=== PATIENT | female | born 1935 | race Caucasian/White ===

== ENCOUNTER 2017-04-15 03:51 | Emergency (ER) | payer MEDICARE, BC ==
[2017-04-15 04:36] LABS: Basophils % (A) 0 %; CH 31.9; CHCM 35.9; Eosinophils # (A) 0.2 k/uL (0-0.7); Eosinophils % (A) 4 %; HCT 39.7 % (34.0-46.0); HGB 13.8 gm/dL (11.4-16.0); Luc # (Auto) 0.13; Luc % (Auto) 2; Lymphocytes # (A) 1.6 k/uL (1.0-4.8); Lymphocytes % (A) 29 %; MCH 30.8 pg (25.0-35.0); MCHC 34.7 g/dL (31.0-37.0); Monocytes # (A) 0.4 k/uL (0-1.0); Monocytes % (A) 7 %; Neutrophils # (A) 3.2 k/uL (1.3-7.7); Neutrophils % (A) 57 %; RBC 4.47 m/uL (3.80-5.40); RDW 12.8 % (11.5-15.5); WBC 5.6 k/uL (3.8-10.6); WBC (Perox) 5.72
[2017-04-15 04:47] LABS: Anion Gap 13 mmol/L; Blood Urea Nitrogen 19 mg/dL (7-17); Calcium 9.7 mg/dL (8.4-10.2); Carbon Dioxide 21 mmol/L (22-30); Chloride 105 mmol/L (98-107); Glucose 118 mg/dL (74-99); Non-African American GFR(MDRD) 53 (>60 ml/min/1.73 sqM); Potassium 4.3 mmol/L (3.5-5.1); Sodium 139 mmol/L (137-145)
[2017-04-15 04:56] LABS: Appearance,Urine Clear (Clear); Bacteria,Urine Rare /hpf; Bilirubin,Urine Negative (Negative); Glucose,Urine (UA) Negative (Negative); Ketones,Urine Negative (Negative); Leukocyte Esterase,Urine Trace (Negative); Mucus,Urine Rare /hpf; Nitrite,Urine Negative (Negative); PH, Urine 5.5 (5.0-8.0); Particle Count 1276; Protein,Urine Negative (Negative); RBC,Urine 1 /hpf (0-5); Specific Gravity,Urine 1.013 (1.001-1.035); Squamous Epithelial Cell,Urine 1 /hpf (0-4); UA Billing (MACRO vs. MICRO) MICRO; Urobilinogen,Urine <2.0 mg/dL (<2.0); WBC,Urine 7 /hpf (0-5)
[2017-04-15] MEDS ORDERED: ONDANSETRON 4 MG/2 ML VIAL IVP STA (05:22)
--- NOTE | 2017-04-15 05:35 | ED ---
General Adult HPI - General Chief complaint: Recheck/Abnormal Lab/Rx Stated complaint: groin pain Time Seen by Provider: 04/15/17 04:04 Source: patient Mode of arrival: ambulatory - History of Present Illness Initial comments: This patient is an 81-year-old woman who presents with complaint of having "groin pain," and indicating the suprapubic area. The patient states that this is been intermittent for a couple of days and that she was seen by her clinic doctor, diagnosed with urinary tract infection, and given prescription of ciprofloxacin. The patient did not initially start this as the symptoms have been somewhat intermittent. The patient states that she spoke with family members and it was suggested to her to try apple cider vinegar as a home remedy. The patient states that she did take this but that it seemed to give her some diarrhea. When the symptoms recurred this evening she did take a dose of the ciprofloxacin. The symptoms recurred this morning and she presents here to be evaluated. The patient describes the pain as feeling like everything is falling out, indicating her vulvar area. The symptoms are intermittent. She is denying savannah dysuria. She does not have any hesitancy. There may be an element of frequency. There is no hematuria. No fever or chills. No upper abdominal pain. No chest pain or dyspnea. Onset/Timin -: days(s) Location: pelvis Radiation: non-radiation Quality: other (Pressure) Consistency: intermittent Improves with: none Worsens with: none Associated Symptoms: denies other symptoms Treatments Prior to Arrival: other (1 dose of ciprofloxacin) - Related Data Home Medications Medication Instructions Recorded Confirmed Levothyroxine Sodium [Levoxyl] 150 mcg PO DAILY 06/21/14 06/21/14 Previous Rx's Medication Instructions Recorded Diazepam [Valium] 2 mg PO BID #15 tab 06/21/14 Hydrocodone/Acetaminophen [Lynn 1 each PO Q6HR PRN #30 tab 06/21/14 5-325] Naproxen [Naprosyn] 500 mg PO Q12HR #60 tab 06/21/14 Promethazine [Phenergan] 25 mg PO Q6HR PRN #8 tablet 04/15/17 Allergies Allergy/AdvReac Type Severity Reaction Status Date / Time Anesthetics - Josee Type- AdvReac Nausea & Verified 06/21/14 11:41 Parabens Vomiting [Anesthetics - Josee Type] Review of Systems ROS Statement: Those systems with pertinent positive or pertinent negative responses have been documented in the HPI. ROS Other: All systems not noted in ROS Statement are negative. Constitutional: Denies: fever, chills, weakness Respiratory: Denies: cough, dyspnea Cardiovascular: Denies: chest pain, palpitations, edema Gastrointestinal: Reports: as per HPI, abdominal pain, diarrhea (Following apple cider vinegar). Denies: nausea, vomiting, constipation, melena, hematochezia Genitourinary: Reports: frequency. Denies: urgency, dysuria, hematuria, discharge Musculoskeletal: Denies: back pain Skin: Denies: rash Neurological: Denies: headache, weakness, numbness Past Medical History Past Medical History: Thyroid Disorder History of Any Multi-Drug Resistant Organisms: None Reported Past Surgical History: Appendectomy, Cholecystectomy, Hysterectomy Additional Past Surgical History / Comment(s): breast, sciatica Past Psychological History: No Psychological Hx Reported Smoking Status: Never smoker Past Alcohol Use History: None Reported Past Drug Use History: None Reported General Exam General appearance: alert, in no apparent distress ENT exam: Present: normal oropharynx Respiratory exam: Present: normal lung sounds bilaterally. Absent: respiratory distress, wheezes, rales, rhonchi, stridor Cardiovascular Exam: Present: regular rate, normal rhythm, normal heart sounds. Absent: systolic murmur, diastolic murmur, rubs, gallop GI/Abdominal exam: Present: soft, normal bowel sounds. Absent: distended, tenderness, guarding, rebound, mass, pulsatile mass, hernia Extremities exam: Present: normal inspection, normal capillary refill. Absent: pedal edema, calf tenderness Back exam: Present: normal inspection. Absent: CVA tenderness (R), CVA tenderness (L) Neurological exam: Present: alert, normal gait Skin exam: Present: warm, dry, intact, normal color. Absent: rash Course Vital Signs 04/15/17 03:55 Temperature 97.2 F L Pulse Rate 88 Respiratory 21 Rate Blood Pressure 146/65 O2 Sat by Pulse 99 Oximetry - Reevaluation(s) Reevaluation #1: 04/15/17 05:37 When the patient's results were returned, I discussed the findings with the patient and her daughter. I explained to them that the urinary findings really were somewhat minimal in comparison with the patient's description of the severity of the symptoms. In light of that I recommended further workup, including checking a gynecologic exam to see if there is an element of uterine prolapse. The patient is declining and wants to take the course of ciprofloxacin that she was prescribed and follow-up. At this point the patient' s abdominal exam is benign, and the vital signs and remainder of labs seem compatible with her trying the outpatient medicine for day returning if there is any worsening. Discussed that there are certainly other etiologies which would cause low abdominal symptoms other than urinary tract infection, including but not limited to things such as diverticulitis, colitis, uterine pathology, and others and that she must definitely follow-up to ensure resolution, returning if any worsening or any new symptoms. Medical Decision Making - Lab Data Result diagrams: 04/15/17 04:30 04/15/17 04:30 Lab Results 04/15/17 04/15/17 04/15/17 Range/Units 04:30 04:30 04:30 WBC 5.6 (3.8-10.6) k/uL RBC 4.47 (3.80-5.40) m/uL Hgb 13.8 (11.4-16.0) gm/dL Hct 39.7 (34.0-46.0) % MCV 89.0 (80.0-100.0) fL MCH 30.8 (25.0-35.0) pg MCHC 34.7 (31.0-37.0) g/dL RDW 12.8 (11.5-15.5) % Plt Count 280 (150-450) k/uL Neutrophils % 57 % Lymphocytes % 29 % Monocytes % 7 % Eosinophils % 4 % Basophils % 0 % Neutrophils # 3.2 (1.3-7.7) k/uL Lymphocytes # 1.6 (1.0-4.8) k/uL Monocytes # 0.4 (0-1.0) k/uL Eosinophils # 0.2 (0-0.7) k/uL Basophils # 0.0 (0-0.2) k/uL Sodium 139 (137-145) mmol/L Potassium 4.3 (3.5-5.1) mmol/L Chloride 105 (98-107) mmol/L Carbon Dioxide 21 L (22-30) mmol/L Anion Gap 13 mmol/L BUN 19 H (7-17) mg/dL Creatinine 1.00 (0.52-1.04) mg/dL Est GFR (MDRD) Af Amer >60 (>60 ml/min/1.73 sqM) Est GFR (MDRD) Non-Af 53 (>60 ml/min/1.73 sqM) Glucose 118 H (74-99) mg/dL Calcium 9.7 (8.4-10.2) mg/dL Urine Color Yellow Urine Appearance Clear (Clear) Urine pH 5.5 (5.0-8.0) Ur Specific [place] 1.013 (1.001-1.035) Urine Protein Negative (Negative) Urine Glucose (UA) Negative (Negative) Urine Ketones Negative (Negative) Urine Blood Negative (Negative) Urine Nitrite Negative (Negative) Urine Bilirubin Negative (Negative) Urine Urobilinogen <2.0 (<2.0) mg/dL Ur Leukocyte Esterase Trace H (Negative) Urine RBC 1 (0-5) /hpf Urine WBC 7 H (0-5) /hpf Ur Squamous Epith Cells 1 (0-4) /hpf Urine Bacteria Rare H (None) /hpf Urine Mucus Rare H (None) /hpf Disposition Clinical Impression: Urinary tract infection Disposition: HOME SELF-CARE Condition: Fair Instructions: Urinary Tract Infection in Women (ED) Additional Instructions: As we discussed, follow-up with your doctor to ensure that the symptoms resolve with the treatment. The urine specimen has been sent for a culture but this requires up to 48 hours to yield a result. 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 If there is any worsening, return to the emergency department for computed tomography scan of the abdomen. Prescriptions: Promethazine [Phenergan] 25 mg PO Q6HR PRN #8 tablet PRN Reason: Nausea Referrals: Juan Antonio Miles MD [Primary Care Provider] - 1-2 days Jeanne Uribe DO [Doctor of Osteopathic Medicine] - 1-2 days
[2017-04-15 05:55] VITALS: BP 134/65; PULSE 77; RESP 18; TEMP 97.9
== END 2017-04-15 05:54 | disposition home or self-care (01) ==
LOC: EC 03:51
DX: N39.0 Urinary tract infection, site not specified (principal); E07.9 Disorder of thyroid, unspecified; Z79.899 Other long term (current) drug therapy; Z88.4 Allergy status to anesthetic agent; Z90.49 Acquired absence of other specified parts of digestive tract
CPT/HCPCS: 36415; 80048; 85025; 81001; 87086; 99283; 96374; J2405

== ENCOUNTER → 2018-12-31 | Outpatient (CLI) | payer MEDICARE ==
--- NOTE | 2018-12-31 15:48 | BD ---
EXAMINATION TYPE: Axial Bone Density DATE OF EXAM: 12/31/2018 COMPARISON: NONE CLINICAL HISTORY: Height: 64 Weight: 135.9 FRAX RISK QUESTIONS: Alcohol (3 or more units per day): no Family History (Parent hip fracture): no Glucocorticoids (More than 3mos): no (Ex: prednisone, prednisolone, methylprednisolone, dexamethasone, and hydrocortisone). History of Fracture in Adulthood: no Secondary Osteoporosis: 1. Type 1 Diabetes: no 2. Hyperthyroidism: no 3. Menopause before 45: yes 4. Malnutrition: no 5. Chronic liver disease: no Rheumatoid Arthritis: no Current Tobacco Use: no RISK FACTORS HISTORY OF: Family History of Osteoporosis: no Active: yes Diet low in dairy products/other sources of calcium: no Postmenopausal woman: hysterectomy 1978 Lost more than 2 inches in height since high school: no MEDICATIONS: Thyroid Medications: thyroid How Lon years Additional History: EXAM MEASUREMENTS: Bone mineral densitometry was performed using the [employer] System. Bone mineral density as measured about the Lumbar spine is: ----- L1-L4(G/cm2): 1.250 T Score Values are as follows: ----- L2: -0.1 ----- L3: 0.3 ----- L4: 1.7 ----- L1-L4: 0.6 Bone mineral density has: baseline Bone mineral density about the R hip (g/cm2): 0.862 Bone mineral density about the L hip (g/cm2): 0.839 T Score values are as follows: -----R Neck: -1.3 -----L Neck: -1.4 -----R Total: -1.5 -----L Total: -1.4 Bone mineral density : baseline IMPRESSION: Osteopenia (T Score between -2.5 and -1) overall in both hips. There is slightly increased risk of fracture and the patient may be considered for treatment. Re-Screen 2-5 years. NOTE: T-SCORE=SD OF THE YOUNG ADULT MEAN.
== END | disposition home or self-care (01) ==
LOC: RADBDWWP 12:27
PROVIDERS: ATTEND Family Medicine
DX: M85.852 Other specified disorders of bone density and structure, left thigh (principal); M85.851 Other specified disorders of bone density and structure, right thigh; Z78.0 Asymptomatic menopausal state
CPT/HCPCS: 77080

== ENCOUNTER 2021-03-16 11:02 | Emergency (ER) | payer MEDICARE ==
[2021-03-16 11:13] VITALS: TEMP 98.3
[2021-03-16] MEDS ORDERED: HYDROcodone/APAP 5-325MG 1 EACH TAB PO STA (11:33)
--- NOTE | 2021-03-16 12:06 | XR ---
EXAMINATION TYPE: XR lumbosacral spine min 4V DATE OF EXAM: 03/16/2021 Comparison: None Clinical History: 85-year-old female with fall, pain Findings: Osteopenia. Hypertrophic facet arthropathy mid to lower lumbar spine. Grade 1 anterolisthesis L4-L5. Accentuated lumbar lordosis. Mild degenerative disc disease. Vertebral body heights are preserved and alignment otherwise maintained. Impression: Hypertrophic facet arthropathy with grade 1 anterolisthesis at L4-L5. Osteopenia. No vertebral compre ssion collapse.
[2021-03-16] MEDS ORDERED: ACET/COD 300 MG/30 MG STARTER PACK 6 TAB BTL PO STA (12:41)
--- NOTE | 2021-03-16 12:41 | ED ---
Back Pain HPI - General Chief Complaint: Back Pain/Injury Stated Complaint: Fall/back injury Time Seen by Provider: 03/16/21 11:26 Source: patient, RN notes reviewed Mode of arrival: ambulatory Limitations: physical limitation - History of Present Illness Initial Comments: This a 85-year-old female presents emergency Department with chief complaint of fall, back pain. Patient states that she she was in the garden states that she fell backwards striking her back. Patient states she still having pain Tylenol does work in the day but states is more short nighttime. Denies any bowel, bladder incontinence or retention of steroids seizures. Denies any weakness of her lower legs. She states pain is better at rest. - Related Data Home Medications Medication Instructions Recorded Confirmed Levothyroxine Sodium [Levoxyl] 150 mcg PO DAILY 06/21/14 06/21/14 Previous Rx's Medication Instructions Recorded Hydrocodone/Acetaminophen [Rosie 1 each PO Q6HR PRN #30 tab 06/21/14 5-325] Naproxen [Naprosyn] 500 mg PO Q12HR #60 tab 06/21/14 diazePAM [Valium] 2 mg PO BID #15 tab 06/21/14 Promethazine [Phenergan] 25 mg PO Q6HR PRN #8 tablet 04/15/17 Allergies Allergy/AdvReac Type Severity Reaction Status Date / Time Anesthetics - Josee Type- AdvReac Nausea & Verified 03/16/21 11:13 Parabens Vomiting [Anesthetics - Josee Type] Review of Systems ROS Statement: Those systems with pertinent positive or pertinent negative responses have been documented in the HPI. ROS Other: All systems not noted in ROS Statement are negative. Past Medical History Past Medical History: Thyroid Disorder History of Any Multi-Drug Resistant Organisms: None Reported Past Surgical History: Appendectomy, Cholecystectomy, Hysterectomy Additional Past Surgical History / Comment(s): breast, sciatica Past Psychological History: No Psychological Hx Reported Smoking Status: Never smoker Past Alcohol Use History: None Reported Past Drug Use History: None Reported General Exam Limitations: physical limitation General appearance: alert, in no apparent distress Head exam: Present: atraumatic, normocephalic, normal inspection Respiratory exam: Present: normal lung sounds bilaterally. Absent: respiratory distress, wheezes, rales, rhonchi, stridor Cardiovascular Exam: Present: regular rate, normal rhythm, normal heart sounds. Absent: systolic murmur, diastolic murmur, rubs, gallop, clicks GI/Abdominal exam: Present: soft, normal bowel sounds. Absent: distended, tenderness, guarding, rebound, rigid Extremities exam: Present: other (Lower extremity strength equal bilaterally neurovascular intact) Back exam: Present: tenderness, paraspinal tenderness, vertebral tenderness. Absent: full ROM Neurological exam: Present: reflexes normal. Absent: motor sensory deficit Skin exam: Present: warm, dry, intact, normal color. Absent: rash Course Vital Signs 03/16/21 11:10 Temperature 98.3 F Pulse Rate 72 Respiratory 18 Rate Blood Pressure 148/71 O2 Sat by Pulse 98 Oximetry Medical Decision Making - Medical Decision Making X-ray does not show any evidence of compression fracture. Patient pain is improved be discharged in stable condition. She has no red flag symptoms return parameters were discussed. Disposition Clinical Impression: Back contusion, Fall Disposition: HOME SELF-CARE Condition: Stable Instructions (If sedation given, give patient instructions): Acute Low Back Pain (ED) Additional Instructions: Please return to the Emergency Department if symptoms worsen or any other concerns. Is patient prescribed a controlled substance at d/c from ED?: No Referrals: Juan Antonio Miles MD [Primary Care Provider] - 1-2 days Time of Disposition: 12:41
[2021-03-16 12:59] VITALS: BP 136/72; PULSE 78; RESP 20
== END 2021-03-16 12:50 | disposition home or self-care (01) ==
LOC: EC 11:02
DX: S30.0XXA Contusion of lower back and pelvis, initial encounter (principal); Z79.890 Hormone replacement therapy; Z79.1 Long term (current) use of non-steroidal anti-inflammatories (NSAID); Z79.899 Other long term (current) drug therapy; Z88.4 Allergy status to anesthetic agent; W19.XXXA Unspecified fall, initial encounter
CPT/HCPCS: 72110; 99284